=== PATIENT | male | born 1975 | race Caucasian/White ===

== ENCOUNTER → 2017-09-09 | Outpatient (CLI) | payer BC ==
[2017-09-09] MEDS: IOHEXOL 240 MG/ML 50ML VIAL. PO (12:24)
[2017-09-09] MEDS: IOHEXOL 300 MG/ML 100ML VIAL. IV (12:24)
== END | disposition home or self-care (01) ==
LOC: KCIC CT 11:18
DX: K76.0 Fatty (change of) liver, not elsewhere classified (principal); N20.0 Calculus of kidney; M43.06 Spondylolysis, lumbar region; K82.8 Other specified diseases of gallbladder
CPT/HCPCS: 74177; Q9966; Q9967

== ENCOUNTER → 2017-09-25 | Outpatient (CLI) | payer BC ==
[2017-09-25 15:06] LABS: ADD MAN DIFF? NO
[2017-09-25 15:09] LABS: BASO # 0.1 x10^3/uL (0.0-0.2); BASO % 1 % (0-3); EOS # 0.2 x10^3/uL (0.0-0.7); EOS % 2 % (0-3); HEMATOCRIT 30.7 % (39.0-53.0); HEMOGLOBIN 9.4 g/dL (13.0-17.5); LYMPH % 25 % (24-48); MEAN CORPUSCULAR HEMOGLOBIN 22 pg (25-35); MEAN CORPUSCULAR HGB CONC 31 g/dL (31-37); MEAN CORPUSCULAR VOLUME 73 fL (79-100); MONO # 0.6 x10^3/uL (0.0-1.1); MONO % 8 % (0-9); NEUT # 5.3 x10^3uL (1.8-7.7); NEUT % 65 % (31-73); PLATELET COUNT 380 x10^3/uL (140-400); RED CELL DISTRIBUTION WIDTH 24.8 % (11.5-14.5); WHITE BLOOD COUNT 8.2 x10^3/uL (4.0-11.0)
[2017-09-25 15:21] LABS: ALBUMIN 3.8 g/dL (3.4-5.0); ANION GAP 8 (6-14); BLOOD UREA NITROGEN 15 mg/dL (8-26); CALCIUM 9.2 mg/dL (8.5-10.1); CARBON DIOXIDE 29 mmol/L (21-32); CHLORIDE 104 mmol/L (98-107); CREATININE 1.1 mg/dL (0.7-1.3); GFR 73.4; GLUCOSE 124 mg/dL (70-99); POTASSIUM 3.8 mmol/L (3.5-5.1); SODIUM 141 mmol/L (136-145)
[2017-09-25 16:16] LABS: ANISOCYTOSIS MOD; HYPOCHROMIA MOD; MICROCYTOSIS SLIGHT; PLT ESTIMATE ADEQUATE (ADEQUATE); POIKILOCYTOSIS SLIGHT
[2017-09-25 16:17] LABS: OVALOCYTES FEW
== END | disposition home or self-care (01) ==
LOC: SURGPAT 14:38
DX: R79.89 Other specified abnormal findings of blood chemistry (principal); R73.09 Other abnormal glucose; Z87.442 Personal history of urinary calculi
CPT/HCPCS: 36415; 80048; 82040; 85025

== ENCOUNTER → 2017-10-24 | Outpatient (CLI) | payer BC ==
[~2017-10-24] MED LIST: CONTRAST GIVEN MC; IOHEXOL 300 MG/ML 100ML VIAL. IV
== END | disposition home or self-care (01) ==
LOC: CT 11:21
DX: C18.9 Malignant neoplasm of colon, unspecified (principal)
CPT/HCPCS: 71260; Q9967

== ENCOUNTER → 2017-10-28 | Day surgery (SDC) | payer BC ==
[~2017-10-28] MED LIST changes: +BUPIVACAINE MPF 0.5% 30 ML VIAL.; +BUPIVACAINE-EPI 0.25%-1:200000 50 ML VIAL.; -CONTRAST GIVEN MC; +DEXAMETHASONE SOD PHOS 20 MG/5 ML VIAL.; +HEPARIN SODIUM 5,000 UNIT in IV NORMAL SALINE 500ML BAG 500 ML IRR; +HEPARIN for IV BOLUS 10,000 UNIT/10 ML VIAL.; -IOHEXOL 300 MG/ML 100ML VIAL. IV; +LIDOCAINE 1% PF 2 ML VIAL. ID; +LIDOCAINE 2% PF Vial for OR 5 ML VIAL.; +MORPHINE SULFATE 4 MG/ML DISP.SYRIN. IV; +ONDANSETRON PF 4 MG/2 ML VIAL.; +ONDANSETRON PF 4 MG/2 ML VIAL. IV; +PROCHLORPERAZINE 10 MG/2 ML VIAL. IV; +PROPOFOL 20 ML IV; +SURGICEL HEMOSTAT 4X8 EACH.; +ePHEDrine PF IN SALINE 50 MG/5 ML DISP.SYRIN IV; +fentaNYL PF VIAL 100 MCG/2 ML VIAL; +fentaNYL PF VIAL 100 MCG/2 ML VIAL IV
[2017-10-28] MEDS: IV RINGERS,LACTATED 1000ML 1,000 ML IV (11:04)
[2017-10-28] MEDS: fentaNYL PF VIAL 100 MCG/2 ML VIAL IV (13:04)
[2017-10-28] MEDS: oxyCODONE/APAP 5/325 1 TAB TABLET PO (13:33)
== END | disposition home or self-care (01) ==
LOC: SURG 09:48
DX: Z45.2 Encounter for adjustment and management of vascular access device (principal); C18.2 Malignant neoplasm of ascending colon; K21.9 Gastro-esophageal reflux disease without esophagitis; D64.9 Anemia, unspecified; K08.409 Partial loss of teeth, unspecified cause, unspecified class; Z98.890 Other specified postprocedural states; Z72.89 Other problems related to lifestyle; Z79.899 Other long term (current) drug therapy
CPT/HCPCS: 36556; 36561; 71045; 77001; A7015; C1788; J0690; J1100; J1644; J2405; J2704; J3010; J3490; J7040

== ENCOUNTER → 2018-09-05 | Outpatient (CLI) | payer BC ==
[2017-10-28 13:50] VITALS: BP 135/80
[~2018-09-05] MED LIST changes: -BUPIVACAINE MPF 0.5% 30 ML VIAL.; -BUPIVACAINE-EPI 0.25%-1:200000 50 ML VIAL.; +CHOL10003 PO; +CONTRAST GIVEN. MC PRN; -DEXAMETHASONE SOD PHOS 20 MG/5 ML VIAL.; -HEPARIN SODIUM 5,000 UNIT in IV NORMAL SALINE 500ML BAG 500 ML IRR; -HEPARIN for IV BOLUS 10,000 UNIT/10 ML VIAL.; +IOHEXOL 240 MG/ML 50ML VIAL. PO ONE; +IOHEXOL 300 MG/ML 100ML VIAL. IV ONE; +IRON1CAP17 PO; -LIDOCAINE 1% PF 2 ML VIAL. ID; -LIDOCAINE 2% PF Vial for OR 5 ML VIAL.; -MORPHINE SULFATE 4 MG/ML DISP.SYRIN. IV; -ONDANSETRON PF 4 MG/2 ML VIAL.; -ONDANSETRON PF 4 MG/2 ML VIAL. IV; +OXYC1TAB15 PO; +PANT20TA2 PO; -PROCHLORPERAZINE 10 MG/2 ML VIAL. IV; -PROPOFOL 20 ML IV; +SENN1TAB70 PO; -SURGICEL HEMOSTAT 4X8 EACH.; -ePHEDrine PF IN SALINE 50 MG/5 ML DISP.SYRIN IV; -fentaNYL PF VIAL 100 MCG/2 ML VIAL; -fentaNYL PF VIAL 100 MCG/2 ML VIAL IV
--- NOTE | 2018-09-05 10:46 | RAD ---
PQRS Compliance statement: One or more of the following individualized dose reduction techniques were utilized for this examination: 1. Automated exposure control. 2. Adjustment of the mA and/or kV according to patient size. 3. Use of iterative reconstruction technique. Indication:MALIGNANT NEOPLASM ASCENDING COLON INJ 75ML OMNI 300 PREV SENT TECHNIQUE: CT chest, abdomen and pelviswith IV contrast with multiplanar reformats. COMPARISON: CT of chest from 10/24/[address] abdomen pelvis from 09/09/2017. FINDINGS: Heart is mildly enlarged in size. No pericardial or pleural effusion. Left chest wall Chemo-Port is seen with its tip in the SVC. No enlarged axillary, mediastinal or hilar adenopathy. Central airways are patent. Lungs are clear. No suspicious bony lesions in the chest. Liver, gallbladder, pancreas, adrenals and kidneys are within normal limits. Spleen is mildly enlarged measuring 16.5 cm without focal lesion. No enlarged retroperitoneal or pelvic adenopathy. No free pelvic fluid or ascites. Status post partial proximal colectomy. Rectosigmoid colon is collapsed. The prostate and seminal vesicles show no large mass. Urinary bladder is within normal limits. No suspicious bony lesion. IMPRESSION: 1. No evidence of metastatic disease in the chest. 2. Interval resection of proximal colon without evidence metastatic disease in the abdomen or pelvis. Electronically signed by: Merrill Glez DO (09/05/2018 10:43 AM) [facility]
== END | disposition home or self-care (01) ==
LOC: CT 08:29
PROVIDERS: ATTEND Internal Medicine Hematology & Oncology
DX: C18.2 Malignant neoplasm of ascending colon (principal); R16.1 Splenomegaly, not elsewhere classified
CPT/HCPCS: 71260; 74177; Q9966; Q9967

== ENCOUNTER → 2019-09-14 | Outpatient (CLI) | payer BC, OTHER ==
[2017-10-28 13:50] VITALS: BP 135/80
[~2019-09-14] MED LIST changes: -CONTRAST GIVEN. MC PRN
--- NOTE | 2019-09-14 10:23 | KCIC ---
CT CHEST ABD PELVIS W/CONTRAST History: Colon cancer Comparison: 09/05/2018 Technique: After administration of intravenous contrast, helical CT of the abdomen and pelvis was performed from the lung bases through the ischial tuberosities. Coronal and sagittal reconstructions were obtained. 100 mL of Omnipaque 300 were used. One or more of the following dose reduction techniques were utilized: Automated exposure control (AEC), Adjustment of mA and/or kV according to patient size, Use of iterative reconstruction technique such as ASiR, CT scan done according to ALARA and image gently/image wisely Abdomen Findings: The visualized lung bases are clear. There are a couple of subcentimeter hepatic hypodensities which are stable, too small to characterize but probably cysts. The gallbladder, pancreas, spleen, and bilateral adrenal glands are normal. Symmetric renal enhancement. There is no focal renal mass. There is no hydronephrosis. Right hemicolectomy. Normal caliber large and small bowel. There is no free fluid. There is no mesenteric or retroperitoneal adenopathy. The abdominal aorta is normal in caliber. Pelvis Findings: Urinary bladder is normal. No pelvic free fluid. There is no pelvic or inguinal adenopathy. There is no acute bony abnormality. IMPRESSION: No evidence of recurrent or metastatic disease. Electronically signed by: Srini Scott MD (09/14/2019 10:20 AM) [id number]
== END | disposition home or self-care (01) ==
LOC: KCIC CT 07:59
PROVIDERS: ATTEND Internal Medicine Hematology & Oncology
DX: C18.2 Malignant neoplasm of ascending colon (principal)
CPT/HCPCS: 71260; 74177; Q9966; Q9967